=== PATIENT | female | born 1930 | race Caucasian/White ===

== ENCOUNTER 2020-08-31 16:22 | Observation (INO) ==
[2020-08-31 16:44] LABS: Basophils % 0.2 % (0.0-0.8); Eosinophils # 0.1 10*3/uL (0.0-0.87); Hematocrit 39.8 VOL% (35.7-47.0); Hemoglobin 13.4 GM/DL (12.0-16.0); Immature Granulocytes % 0.7 %; Immature Granulocytes Absolute 0.04 #; Lymphocytes # 1.6 10*3/uL (1.4-4.0); Lymphocytes % 26.5 % (21.3-54.2); Mean Corpuscular HGB Conc 33.7 GM/DL (32-36); Mean Corpuscular Volume 92.8 FL (87-102); Monocytes % 9.6 % (1.7-12.7); Platelet Count 144 T/CUMM (130-400); Red Blood Count 4.29 MC/CUMM (3.8-5.5); Red Cell Distribution Width 13.4 % (9.3-17.3); White Blood Count 6.1 T/CUMM (4-12)
[2020-08-31 17:11] LABS: Alanine Aminotransferase 51 U/L (13-56); Albumin 3.3 G/DL (3.4-5.0); Alkaline Phosphatase 89 U/L (45-117); Aspartate Amino Transferase 77 U/L (0-37); Bilirubin,Total < 0.39 MG/DL (0.2-1.0); Blood Urea Nitrogen 26 MG/DL (7-18); Calcium 9.4 MG/DL (8.5-10.1); Estimated Glom Filtration Rate 34 ML/MIN; Glucose 126 MG/DL (74-106); Osmolality,Calculated 287.3 MOS/KG (273-304); Total Protein 6.4 G/DL (6.4-8.3)
[2020-08-31] MEDS ORDERED: ONDANSETRON 4 MG/2 ML VIAL ONE (17:16)
[2020-08-31] MEDS ORDERED: ONDANSETRON 4 MG/2 ML VIAL IV STA (17:18)
[2020-08-31 17:37] LABS: Bacteria,Urine Occasional /HPF (Few); Bilirubin,Urine Negative (Negative); Blood, Urine Negative (Negative); Glucose,Urine (UA) Negative (Negative); Hyaline Casts,Urine 7 /LPF (0-3); Ketones,Urine Negative (Negative); Mucus,Urine Occasional /LPF (Occasional); Nitrite,Urine Negative (Negative); Protein,Urine 100 MG/DL; RBC,Urine 3 /HPF (0-4); Urine Appearance CLEAR (Clear); Urine Color Yellow (Yellow); Urine Specific Gravity 1.017 (1.001-1.035); WBC,Urine 3 /HPF (0-6)
[2020-08-31] MEDS ORDERED: TISSUE ADHESIVE 1 EACH APPLICATOR TOP ONE (17:43)
[2020-08-31] MEDS ORDERED: DIPH/TET/ACEL PERT BOOSTER VACCINE 0.5 ML VIAL IM ONE (17:44)
[2020-08-31] MEDS ORDERED: ONDANSETRON 4 MG/2 ML VIAL IV PRN (17:58)
[2020-08-31] MEDS ORDERED: GLUCAGON 1 MG VIAL IM PRN (17:58)
[2020-08-31] MEDS ORDERED: DEXTROSE 50% 25 GM/50 ML VIAL IV PRN (17:58)
[2020-08-31] MEDS ORDERED: SODIUM CHLORIDE 0.9% 1,000 ML IV SCH (18:00)
[2020-08-31] MEDS ORDERED: ENOXAPARIN 30 MG/0.3 ML SYRINGE SUBCUT SCH (21:00)
[2020-08-31] MEDS: POLYETHYLENE GLYCOL POWDER 17 GM PACK PO SCH (21:19)
[2020-08-31] MEDS: ENOXAPARIN 80 MG/0.8 ML SYRINGE SUBCUT SCH (22:19)
[2020-08-31] MEDS: ZALEPLON 5 MG CAPSULE PO SCH (22:19)
[2020-09-01] MEDS ORDERED: ACETAMINOPHEN 325 MG TABLET PO PRN (03:04)
[2020-09-01 05:45] LABS: Basophils % 0.1 % (0.0-0.8); Eosinophils # 0.1 10*3/uL (0.0-0.87); Eosinophils % 0.9 % (0.00-10.9); Hematocrit 37.5 VOL% (35.7-47.0); Hemoglobin 12.4 GM/DL (12.0-16.0); Immature Granulocytes % 0.3 %; Immature Granulocytes Absolute 0.02 #; Lymphocytes # 0.9 10*3/uL (1.4-4.0); Lymphocytes % 13.2 % (21.3-54.2); Mean Corpuscular HGB Conc 33.1 GM/DL (32-36); Mean Corpuscular Volume 93.1 FL (87-102); Neutrophils % 77.5 % (38.7-73.9); Platelet Count 107 T/CUMM (130-400); Red Blood Count 4.03 MC/CUMM (3.8-5.5); Red Cell Distribution Width 13.2 % (9.3-17.3); White Blood Count 6.8 T/CUMM (4-12)
[2020-09-01 06:18] LABS: Hypochromasia 1+; Microcytosis 1+; Platelet Estimate Decreased
[2020-09-01 06:25] LABS: Albumin 2.9 G/DL (3.4-5.0); Bilirubin,Total 1.2 MG/DL (0.2-1.0); Calcium 9.2 MG/DL (8.5-10.1); Osmolality,Calculated 287.1 MOS/KG (273-304); Thyroid Stimulating Hormone 0.845 uIU/ml (0.358-3.74); Total Protein 5.8 G/DL (6.4-8.3)
[2020-09-01] MEDS: LEVOTHYROXINE 88 MCG TABLET PO SCH (06:28)
[2020-09-01 07:58] LABS: Troponin I 0.571 NG/ML (0.00-0.045)
[2020-09-01] MEDS ORDERED: SODIUM CHLORIDE 0.9% 1,000 ML IV SCH (09:30)
[2020-09-01] MEDS: CHOLECALCIFEROL 1,000 UNIT TABLET PO SCH (11:01)
[2020-09-01] MEDS: GABAPENTIN 300 MG CAPSULE PO SCH (11:01)
[2020-09-01] MEDS: PANTOPRAZOLE 40 MG TABLET PO SCH (11:02)
[2020-09-01] MEDS: ISOSORBIDE MONONITRATE 30 MG TABLET PO SCH (11:02)
[2020-09-01] MEDS: ASPIRIN EC 81 MG TABLET PO SCH (11:02)
[2020-09-01] MEDS: MULTIVITAMIN (CENTRUM) TABLET PO SCH (11:02)
[2020-09-01] MEDS: FERROUS SULFATE 325 MG TABLET PO SCH (11:02)
[2020-09-01] MEDS: carvediloL 6.25 MG TABLET PO SCH ×2 (11:06→17:28)
[2020-09-01] MEDS: PREVAGEN PO SCH (11:10)
[2020-09-01] MEDS ORDERED: MELOXICAM 7.5 MG TABLET PO SCH (21:00)
[2020-09-01] MEDS: POLYETHYLENE GLYCOL POWDER 17 GM PACK PO SCH (21:39)
[2020-09-01] MEDS: ENOXAPARIN 80 MG/0.8 ML SYRINGE SUBCUT SCH (21:39)
[2020-09-01] MEDS: ZALEPLON 5 MG CAPSULE PO SCH (21:39)
[2020-09-02 04:42] LABS: Basophils % 0.4 % (0.0-0.8); Eosinophils # 0.2 10*3/uL (0.0-0.87); Eosinophils % 2.9 % (0.00-10.9); Hemoglobin 12.2 GM/DL (12.0-16.0); Immature Granulocytes % 0.4 %; Immature Granulocytes Absolute 0.02 #; Lymphocytes # 1.2 10*3/uL (1.4-4.0); Lymphocytes % 20.8 % (21.3-54.2); Mean Corpuscular Volume 92.7 FL (87-102); Mean Platelet Volume 10.9 FL (9.6-12.0); Monocytes % 8.3 % (1.7-12.7); Neutrophils % 67.2 % (38.7-73.9); Platelet Count 120 T/CUMM (130-400); Red Blood Count 3.99 MC/CUMM (3.8-5.5); Red Cell Distribution Width 13.3 % (9.3-17.3); White Blood Count 5.5 T/CUMM (4-12)
[2020-09-02 05:03] LABS: Calcium 8.8 MG/DL (8.5-10.1); Osmolality,Calculated 283.1 MOS/KG (273-304)
[2020-09-02 05:05] LABS: Risk Ratio 2.52; VLDL CHOLESTEROL 18.4 MG/DL
[2020-09-02 05:20] LABS: Troponin I 0.105 NG/ML (0.00-0.045)
[2020-09-02 05:47] LABS: Anisocytosis 1+; Macrocytosis 1+; Platelet Estimate Adequate
[2020-09-02] MEDS: LEVOTHYROXINE 88 MCG TABLET PO SCH (06:10)
[2020-09-02] MEDS: ISOSORBIDE MONONITRATE 30 MG TABLET PO SCH (08:33)
[2020-09-02] MEDS: ASPIRIN EC 81 MG TABLET PO SCH (08:33)
[2020-09-02] MEDS: MULTIVITAMIN (CENTRUM) TABLET PO SCH (08:33)
[2020-09-02] MEDS: GABAPENTIN 300 MG CAPSULE PO SCH (08:33)
[2020-09-02] MEDS: FERROUS SULFATE 325 MG TABLET PO SCH (08:33)
[2020-09-02] MEDS: carvediloL 6.25 MG TABLET PO SCH (08:34)
[2020-09-02] MEDS: PANTOPRAZOLE 40 MG TABLET PO SCH (08:34)
[2020-09-02] MEDS: CHOLECALCIFEROL 1,000 UNIT TABLET PO SCH (08:38)
[2020-09-02] MEDS: PREVAGEN PO SCH (08:42)
[2020-09-02 10:37] VITALS: BP 112/65
== END 2020-09-02 13:56 | disposition home or self-care (01) ==
LOC: EDBD → EDUNIT# → N.EDINP 16:22 → N.ED 16:22 → N.3E 18:39 → N.TELES 23:20
PROVIDERS: ADMIT Internal Medicine; ATTEND Internal Medicine